=== PATIENT | male | born 1980 | race Caucasian/White ===

== ENCOUNTER 2016-03-21 19:21 | Inpatient (IN) ==
[2016-03-21] MEDS ORDERED: SODIUM CHLORIDE 0.9% 1,000 ML IV STA (19:50)
[2016-03-21] MEDS ORDERED: HYDROmorphone 2 MG/1 ML VIAL IV STA (19:50)
[2016-03-21] MEDS ORDERED: ONDANSETRON 4 MG/2 ML VIAL IV STA (19:50)
[2016-03-21] MEDS ORDERED: ONDANSETRON 4 MG/2 ML VIAL ONE ×2 (19:55→22:39)
[2016-03-21] MEDS ORDERED: HYDROmorphone 2 MG/1 ML VIAL ONE (19:55)
--- NOTE | 2016-03-21 20:08 | Emergency Department Note ---
Nimco Doe [place], am scribing for, and in the presence of, Rosalio Hua MD 19:57. Melita Doe Charles R, MD, personally performed the services described in this documentation, ascribed by Marycarmen Rinaldi in my presence, and it is both accurate and complete . Arrival - Arrival Chief Complaint: Abdominal / Flank Pain Stated Complaint: Stomach pain ED Nursing Triage Note: C/O Lower abd pain/fever. Onset lastnight. Pt reports that it is like a constant aching pain. Last BM earlier today. denies nausea/ vomiting/urinary s/s Mode of Arrival: Ambulatory Limitations: No Limitations Source: Patient Time Seen by Provider: 03/21/16 19:42 - History of Present Illness HPI Narrative: This is a 36 y/o white male presenting to the ED with c/o RLQ tenderness. Pt called Dr. Donnelly and was told to come to the ED. He states the pain onset last night and it was constant. Pt believes he had a subjective fever because he was experiencing chills last night. He denies taking anything for the pain. Pt's last BM was earlier today. He denies nausea, vomiting, diarrhea, back pain, dysuria, hematochezia, and diaphoresis. Consistency: constant Severity: moderate Allergies/Adverse Reactions: Allergies Allergy/AdvReac Type Severity Reaction Status Date / Time No Known Allergies Allergy Unverified 03/21/16 19:34 Home Medications: Home Medications Medication Instructions Recorded Confirmed Type No Known Home Medications [No 03/21/16 03/21/16 History Known Home Medications] Review of System - Review of System 12 point system: reviewed and no additional remarkable complaints except as stated - Review of System Constitutional: Absent: chills, fever, weakness Eyes: Absent: vision change Head/Ears/Nose/Throat: Absent: earache, nasal drainage Respiratory: Absent: cough, respiratory distress, wheezing Cardiovascular: Absent: chest pain, dyspnea on exertion Gastrointestinal: Present: abdominal pain (RLQ ). Absent: nausea, vomiting, diarrhea Genitourinary male: Absent: dysuria Musculoskeletal: Absent: arm pain, back pain, leg pain, neck pain Skin: Absent: rash Neurological: Absent: headache, weakness, numbness, confusion, abnormal gait, vertigo Psychiatric: Absent: anxiety Endocrine: Absent: fatigue Hematological/Lymphatic: Absent: easy bleeding Allergic/Immunologic: Absent: facial swelling Medical,Surgical,& Family Hx - Social History Smoking Status: Never smoker Frequency of Alcohol Use: Occasionally Type of Drug Use: None Exam Vital Signs: Vital Signs Temperature 97.9 F 03/21/16 19:33 Pulse Rate 93 H 03/21/16 19:33 Respiratory Rate 18 03/21/16 19:33 Blood Pressure 133/88 03/21/16 19:33 O2 Sat by Pulse Oximetry 98 03/21/16 19:33 - General General appearance: alert, in no apparent distress - Head Head exam: Present: atraumatic, normocephalic, normal inspection - Eye Eye exam: Present: normal appearance, PERRL, EOMI - ENT ENT exam: Present: normal exam, normal oropharynx, mucous membranes moist, TM's normal bilaterally, normal external ear exam - Neck Neck exam: Present: normal inspection, full ROM, trachea midline. Absent: tenderness - Chest Chest inspection: Present: normal inspection, symmetric chest wall rise. Absent : tenderness - Respiratory Respiratory exam: Present: normal lung sounds bilaterally - Cardiovascular Cardiovascular exam: Present: regular rate, normal rhythm, normal heart sounds - Abdominal Exam Abdominal exam: Present: soft, tenderness, guarding, normal bowel sounds, obturator sign, tenderness at McBurney's Point (RLQ ). Absent: distention - Extremities Exam Extremities exam: Present: normal inspection, full ROM, normal capillary refill. Absent: tenderness, pedal edema, calf tenderness - Back Exam Back exam: Present: normal inspection, full ROM. Absent: tenderness - Neurological Exam Neurological exam: Present: alert, oriented X3, CN II-XII intact, normal gait, reflexes normal - Psychiatric Psychiatric exam: Present: normal affect, normal mood - Skin Skin exam: Present: warm, dry, intact, normal color. Absent: rash Course - Consultations Consultation #1: Dr. Vanegas will admit patient Time: 21:12 Results - Labs CBC & BMP: 03/21/16 20:37 Lab Results: I have reviewed the patients labs - Diagnostic Findings Procedure: CT Abdomen and Pelvis: report reviewed by me (she appendicitis) Disposition Clinical Impression: Acute appendicitis, Abdominal pain Case discussed with: patient, patient's family Disposition: Still a Patient Condition: Stable Time of Disposition: 21:17
--- NOTE | 2016-03-21 20:09 | XRay Report ---
Portable chest. Indication: Abdominal pain. No prior study. The heart and mediastinal contours are unremarkable. The pulmonary vasculature is normal. There is no consolidation, pneumothorax, or pleural effusion. The osseous structures are unremarkable. Impression: No abnormality is seen. PROCEDURE INTERPRETED AT [facility] DEPARTMENT OF RADIOLOGY Final Report Signed by: Dr. Lauren Perkins
--- NOTE | 2016-03-21 20:10 | XRay Report ---
2 view abdomen. Indication: Generalized abdominal pain. The heart is normal in size. The lung bases are clear. No free air. No intra-abdominal organomegaly. No abnormal calcifications over the renal outlines, or within the pelvis. Bowel gas pattern is within the range of normal. Normal osseous structures. Impression: No abnormality is seen. PROCEDURE INTERPRETED AT [facility] DEPARTMENT OF RADIOLOGY Final Report Signed by: Dr. Lauren Perkins
[2016-03-21 20:49] LABS: Basophils % 0.3 % (0.0-0.8); Eosinophils # 0.2 10*3/uL (0.0-0.87); Hemoglobin 13.3 GM/DL (14.0-18.0); Immature Granulocytes % 0.3 %; Immature Granulocytes Absolute 0.04 #; Lymphocytes % 16.8 % (21.2-54.2); Mean Corpuscular HGB Conc 34.1 GM/DL (32-36); Mean Corpuscular Hemoglobin 30 PG (27-34); Mean Corpuscular Volume 86.7 FL (87-102); Mean Platelet Volume 9.5 FL (9.6-12.0); Monocytes # 1.3 10*3/uL (0.11-0.8); Monocytes % 10.3 % (1.7-12.7); Neutrophils # 8.5 10*3/uL (1.4-7.4); Neutrophils % 70.3 % (38.7-73.9); Platelet Count 280 10*3/uL (130-400); Red Cell Distribution Width 11.9 % (9.3-17.3); White Blood Count 12.1 10*3/uL (4.5-13.71)
--- NOTE | 2016-03-21 20:50 | CT Report ---
CT of the abdomen and pelvis with intravenous contrast only. 100 cc Omni 350. Axial images were obtained with sagittal and coronal reconstructions. Indication: Right lower quadrant pain. The heart is normal in size. The lung bases are clear. There is a subcentimeter lymph node anterior to the right lobe of the liver. The liver is normal in size and density, without focal lesion or intrahepatic biliary ductal dilatation. There is no splenic enlargement. There is no adrenal enlargement. No pancreatic abnormality is seen. The kidneys are normal in size, location, and contour. They enhance normally. No hydronephrosis. No focal renal lesions. The abdominal aorta is of normal caliber. The gastric contour is grossly normal. The loops of small intestine are not significantly dilated. Fluid is present within the small intestine. The terminal ileum presents a normal appearance. Within the right lower quadrant mesentery, there are multiple borderline enlarged and mildly enlarged lymph nodes, the largest one having a maximum diameter of 13 mm. The appendix is dilated, with a diameter of 14 mm. The wall enhances and is irregular, and there is stranding and inflammation and fluid around the appendix. The inflammation is partially walled off, but a discrete abscess collection is not identified. There is free fluid along the paracolic gutter and in the right aspect of the pelvis, minimal in amount. The colon is not dilated. No colonic wall thickening is seen. No evidence of bowel obstruction. Calcifications within the scrotum. The osseous structures are unremarkable. Impression: Appendicitis, with marked inflammation, regional adenitis, and surrounding inflammation and fluid. PROCEDURE INTERPRETED AT [facility] DEPARTMENT OF RADIOLOGY Final Report Signed by: Dr. Lauren Perkins
[2016-03-21 20:54] LABS: Apearance,Urine CLEAR (Clear); Bilirubin,Urine Negative (Negative); Blood, Urine Negative (Negative); Glucose,Urine (UA) Negative (Negative); Ketones,Urine Negative (Negative); Nitrite,Urine Negative (Negative); Protein,Urine Negative; Urine Color Colorless (Yellow); Urine Specific Gravity 1.003 (1.001-1.035); Urine Urobilinogen < 2.0 EU/DL (0.2-1.0)
[2016-03-21 21:20] LABS: Albumin 4.2 G/DL (3.4-5.0); Bilirubin,Total 0.6 MG/DL (0.2-1.0); Calcium 9.1 MG/DL (8.5-10.1); Magnesium 2.2 MG/DL (1.8-2.4); Osmolality,Calculated 278.3 MOS/KG (273-304); Potassium 3.9 MMOL/L (3.5-5.1)
--- NOTE | 2016-03-21 22:11 | General Surg History&Physical ---
Assessment and Plan (1) Acute appendicitis Status: Acute Assessment and plan: Impression: Acute appendicitis Plan: I reviewed the CT images and report. Labs reviewed as well. The appendix appears very inflamed. No obvious abscess and no peritonitis. I discussed the options with the patient and his and they want to proceed with appendectomy. We discussed the risks of the procedure including bleeding, infection, damage to surrounding structures, need for further surgery in detail. I discussed the procedure and how it is performed in the anticipated recovery. They want to proceed with surgery as soon as possible. I suspect this appendix is very close to perforation if it has not done so already. Current Visit: Yes History of Present Illness Chief complaint: abdominal pain, fever History of present illness: Mr. Arizmendi is a 36 year old male presents to the emergency room with a nearly 24 -hour history of abdominal pain. Patient states it started last night and he felt feverish throughout the night. His pain has been progressively worsening up until he got to the emergency room. He states he's had a little bit of easing off of the pain and did not need pain medicine. He has some recent travel to [place]. He denies diarrhea or constipation shortness of breath chest pain or any heart or lung problems. He's never had surgery before. He is not on any medications. His pain has been in the right lower quadrant and really has not moved. Home Medications Medication Instructions Recorded Confirmed Type No Known Home Medications [No 03/21/16 03/21/16 History Known Home Medications] Allergies Allergy/AdvReac Type Severity Reaction Status Date / Time No Known Allergies Allergy Unverified 03/21/16 19:34 Medical,Surgical,& Family Hx - Medical History Medical History: noncontributory - Social History Smoking Status: Never smoker Frequency of Alcohol Use: Occasionally Type of Drug Use: None Exam - Constitutional Vitals: Period Temp Pulse Resp BP Sys/Wadsworth Pulse Ox Last 24 Hr 97.9 F 93 18 133/88 98 General appearance: no acute distress - Head Head exam: Present: normocephalic - ENT Mouth exam: Present: normal external inspection - Neck Neck exam: Present: normal inspection - Respiratory Respiratory exam: Present: clear to auscultation bilaterally - Cardiovascular Cardiovascular exam: Present: RRR - GI/Abdominal GI/Abdominal exam: Present: soft (tender to palpation in the right lower quadrant without peritoneal signs. Nondistended.) - Extremities Exam Extremities exam: Present: normal inspection - Back Exam Back exam: Present: normal inspection - Neurological Exam Neurological exam: Present: alert, oriented X3 Speech: Present: normal - Skin Skin exam: Present: normal color 12 point system: reviewed and no additional remarkable complaints except as stated Results - Labs CBC & BMP: 03/21/16 20:37 03/21/16 20:37 Lab Results: I have reviewed the past 24 hour labs - Diagnostic Findings Procedure: CT Abdomen and Pelvis: image reviewed by me, report reviewed by me
[2016-03-21] MEDS ORDERED: LIDOCAINE 1%/EPI INJ 20 ML VIAL ONE (22:27)
[2016-03-21] MEDS ORDERED: BUPIVACAINE MPF 0.25% /EPI 30 ML VIAL ONE (22:27)
[2016-03-21] MEDS ORDERED: KETOROLAC 30 MG/1 ML VIAL ONE (22:39)
[2016-03-21] MEDS ORDERED: LIDOCAINE 2% 5 ML VIAL ONE (22:39)
[2016-03-21] MEDS ORDERED: ROCURONIUM 100 MG/10 ML VIAL IV ONE (22:39)
[2016-03-21] MEDS ORDERED: PROPOFOL 200 MG/20 ML VIAL IV ONE (22:39)
[2016-03-21] MEDS ORDERED: SUCCINYLCHOLINE 200 MG/10 ML VIAL ONE (22:39)
[2016-03-21] MEDS: LACTATED RINGERS 1,000 ML IV SCH (22:40)
--- NOTE | 2016-03-21 23:45 | Operative Note ---
Date of procedure: 03/21/16 Pre-op diagnosis: acute appendicitis Post-op diagnosis: same Procedure: Procedure performed: Laparoscopic appendectomy Procedure in detail: After informed consent was obtained, the patient was taken operating suite placed prone operating table. After general anesthesia was induced a Shepherd catheter placed and the abdomen was prepped and draped in usual sterile fashion. After procedural pause local anesthetic and straighten the skin and subcutaneous tissue above the umbilicus. Incision was made and dissection carried down through skin and soft tissue. Fascia identified and grasped with Aleksander's and elevated. Fascial incision was made. Abdominal cavity was entered bluntly. Finger sweep revealed no adhesions. Zayas trocar placed under direct visualization. Pneumoperitoneum achieved. Camera inserted and bowel mesentery inspected and found be free of any violation. Trendelenburg position and rotated to the left. 5 mm suprapubic and left lower quadrant trochars were placed under visualization. Camera moved to the left lower quadrant. In the right lower quadrant the appendix was identified. The distal half of the appendix was very inflamed. There was minimal inflammation near the base. I bluntly dissected the appendix away from the posterior abdominal wall and elevated. A window was created at the base of the appendix and the mesentery and the appendiceal base transected using a NORA stapling device with vascular load. Mesoappendix was transected in the same fashion. The appendix was placed in an Endo Catch sac and removed through the Zayas trocar site. Pneumoperitoneum was reachieved and the right lower quadrant was thoroughly irrigated and suction. Irrigant remained clear and there was excellent hemostasis. Staple lines inspected found be intact no leakage of any succus-appearing fluid or any sanguinous fluid. The trochars were removed and the abdomen desufflated. Fascia at the Zayas trocar site closed using 0 Vicryl [id number] interrupted suture. Wounds were thoroughly irrigated and suction and the deep dermal layer closed with 3-0 Vicryl. 4 Monocryl used to close the skin. Sterile dressings applied. Patient was extubated and taken recovery room in stable condition. All lap and needle counts correct at the end of the case. Anesthesia: GETA Surgeon / Physician: Dyllan Means Estimated blood loss: other (less than 10 mL) Specimens: other (appendix) Condition: stable Disposition: PACU Results - Labs CBC & BMP: 03/21/16 20:37 03/21/16 20:37 Discharge Plan - Discharge Medications No Action No Known Home Medications [No Known Home Medications] - Follow Up or Referral - Forms/Instructions
[2016-03-21] MEDS ORDERED: fentaNYL 100 MCG/2 ML VIAL ONE (23:47)
[2016-03-21] MEDS ORDERED: LACTATED RINGERS 1,000 ML IV ONE (23:47)
[2016-03-21] MEDS ORDERED: MIDAZOLAM 2 MG/2 ML VIAL ONE (23:47)
[2016-03-21] MEDS ORDERED: DESFLURANE 1 UNIT/15 MINUTE INH ONE (23:47)
[2016-03-22] MEDS ORDERED: ONDANSETRON 4 MG/2 ML VIAL IV PRN (00:20)
[2016-03-22] MEDS ORDERED: HYDROmorphone 2 MG/1 ML VIAL IV PRN (00:20)
[2016-03-22] MEDS ORDERED: ACETAMINOPHEN 325 MG TABLET PO PRN (00:20)
[2016-03-22] MEDS: SODIUM CHLORIDE 0.9% 1,000 ML IV SCH ×2 (01:27→08:00)
[2016-03-22] MEDS: metroNIDAZOLE INJ 500 MG in PREMIX 1 EACH IV SCH ×2 (01:27→09:26)
[2016-03-22] MEDS: LACTATED RINGERS 1,000 ML IV SCH (01:35)
--- NOTE | 2016-03-22 08:33 | Anesthesia ---
Anesthesia Post OP - Post Ansesthetic Evaluation Patient seen in post op: Yes Resp: within normal limits CV: within normal limits Mental: within normal limits Temp: within normal limits [id number]: within normal limits Nausea and Vomiting: within normal limits Pain: within normal limits
[2016-03-22] MEDS ORDERED: PANTOPRAZOLE 40 MG VIAL IV SCH (09:00)
[2016-03-22 09:15] LABS: Basophils % 0.2 % (0.0-0.8); Eosinophils % 0.2 % (0.00-10.9); Hemoglobin 11.5 GM/DL (14.0-18.0); Immature Granulocytes % 0.4 %; Immature Granulocytes Absolute 0.04 #; Lymphocytes % 10.7 % (21.2-54.2); Mean Corpuscular HGB Conc 33.8 GM/DL (32-36); Mean Corpuscular Hemoglobin 30 PG (27-34); Mean Corpuscular Volume 89.2 FL (87-102); Mean Platelet Volume 9.8 FL (9.6-12.0); Monocytes # 0.9 10*3/uL (0.11-0.8); Monocytes % 9.6 % (1.7-12.7); Neutrophils # 7.7 10*3/uL (1.4-7.4); Neutrophils % 78.9 % (38.7-73.9); Platelet Count 236 10*3/uL (130-400); Red Blood Count 3.81 10*6/uL (3.8-5.5); Red Cell Distribution Width 12.3 % (9.3-17.3); White Blood Count 9.7 10*3/uL (4.5-13.71)
[2016-03-22 09:50] LABS: Albumin 3.3 G/DL (3.4-5.0); Bilirubin,Total 0.6 MG/DL (0.2-1.0); Calcium 8.3 MG/DL (8.5-10.1); Potassium 4.3 MMOL/L (3.5-5.1); Total Protein 6.1 G/DL (6.4-8.3)
--- NOTE | 2016-03-22 11:48 | Discharge Summary ---
Hospital Course - Hospital Course Hospital Course: 36WM admitted [address] dr whitten w acute appendicitis. he was taken to the OR for laparoscopic appendectomy on 03/21/16. he is doing well postop and is ready for dc. follow up w dr whitten in 2wks. dc instructions given to pt and in room. - Time spent with patient Time with patient DS: Less than 30 minutes Specialty Discharge - Follow Up or Referrals Follow up with: Dyllan Whitten MD [Physician] - 03/29/16 10:00 am Discharge Plan - Discharge Data Disposition: Disch To Home/Self Care Condition at Discharge: Stable Discharge Diet: advance to your usual diet Activity: increase activity as tolerated, no lifting Hygiene: may shower Driving: other (no driving if taking pain pills) Contact your physician if you experience:: fever over 101, Nausea/Vomiting Wound / Dressing Care Instructions: ok to shower daily w mild soap and water, pat dry. ok to leave open to the air or cover prn w bandaids. - Discharge Medications New HYDROcodone/ACETAMIN 7.5-325 [[place] 7.5-325] 1 tablet PO Q4H PRN #30 tablet PRN Reason: Pain Moderate (4-7) - Follow Up or Referral Follow Up: Dyllan Whitten MD [Physician] - 03/29/16 10:00 am - Forms/Instructions Instructions: Appendicitis (DC) Exam - Constitutional Vitals: Period Temp Pulse Resp BP Sys/Wadsworth Pulse Ox Last 24 Hr 97.6 F-98.8 F 72-101 16-20 113-141/64-85 98-100 Discharge Results Labs on day of discharge: Labs from last 24 hours 03/22/16 03/22/16 08:44 08:44 WBC 9.7 RBC 3.81 Hgb 11.5 L Hct 34.0 L MCV 89.2 MCH 30 MCHC 33.8 RDW 12.3 Plt Count 236 MPV 9.8 Neut % (Auto) 78.9 H Lymph % (Auto) 10.7 L [place] % (Auto) 9.6 Eos % (Auto) 0.2 Baso % (Auto) 0.2 Neut # (Auto) 7.7 H Lymph # (Auto) 1.0 L [place] # (Auto) 0.9 H Eos # (Auto) 0.0 Baso # (Auto) 0.0 Immature Gran % 0.4 Nucleated RBC % 0.0 Immature Gran # 0.04 Nucleated RBCs # 0.00 Sodium 143 Potassium 4.3 Chloride 107 Carbon Dioxide 26 Anion Gap 14.3 BUN 10 Creatinine 1.00 GFR Calculation 116 BUN/Creatinine Ratio 10.00 Glucose 125 H Calculated Osmolality 284.0 Calcium 8.3 L Magnesium 2.0 Total Bilirubin 0.60 AST 11 ALT 24 Alkaline Phosphatase 76 Total Protein 6.1 L Albumin 3.3 L Globulin 2.8 Albumin/Globulin Ratio 1.1 DS: Provider Date of admission: 03/21/16 21:18 Primary care physician: Robert Balbuena MD Attending physician on admission: Dyllan Whitten MD Discharging clinician: MINNIE Veras Expected date of discharge: 03/22/16
[2016-03-22 11:55] VITALS: BP 122/70
--- NOTE | 2016-03-24 10:18 | Pathology Report from [facility] ---
ACCESSION # : [id number] PATIENT NAME : Ho Arizmendi ORDERING DR : Dyllan Means MD CLINICAL HX: Acute appendicitis POST-OP DX: Same SPECIMEN INFO: Appendix GROSS DESCRIPTION: Received in formalin labeled "HO ARIZMENDI" is a dilated appendix with a probable perforation present measuring 8.5 x 2 x 3.1 cm. The serosa is erythematous with fibrous adhesions present and possible perforation. Sectioning the appendix reveals the distal half encased in a fatty layer. The lumen contains hemorrhagic material. No definite fecalith is identified. [employer] sections are submitted cassettes A & B. DIAGNOSIS FOR HO ARIZMENDI: APPENDIX, APPENDECTOMY: Acute and chronic appendicitis. SERVICE DATE: 03/22/2016 REPORT DATE: 03/23/2016 PATHOLOGIST: Benja Webb
== END 2016-03-22 14:28 | disposition home or self-care (01) | DRG 343 ==
LOC: N.ED 19:21 → N.EDINP 21:18 → N.3E 22:35
PROVIDERS: ADMIT Surgery; ATTEND Surgery